=== PATIENT | male | born 1980 | race Caucasian/White ===

== ENCOUNTER 2016-11-19 07:22 | Emergency (ER) | payer SELFPAY ==
[~2016-11-19] VITALS: Ht 175.3 cm; Wt 127.0 kg
[2016-11-19] MEDS ORDERED: IBUPROFEN 600MG TABLET PO ONE (08:30)
[2016-11-19 08:44] VITALS: BP 125/86
== END 2016-11-19 08:45 | disposition home or self-care (01) ==
LOC: ER 07:23
DX: M25.512 Pain in left shoulder (principal); M54.2 Cervicalgia; M54.5 Low back pain; R07.9 Chest pain, unspecified; F17.200 Nicotine dependence, unspecified, uncomplicated; Z98.890 Other specified postprocedural states; V49.9XXA Car occupant (driver) (passenger) injured in unspecified traffic accident, initial encounter; Y93.89 Activity, other specified; Y92.89 Other specified places as the place of occurrence of the external cause; Y99.8 Other external cause status
CPT/HCPCS: 99282

== ENCOUNTER 2017-06-26 11:54 | Emergency (ER) | payer SELFPAY ==
[~2017-06-26] VITALS: Ht 177.8 cm; Wt 132.0 kg
[2017-06-26 12:21] VITALS: BP 164/100
== END 2017-06-26 17:07 | disposition left against medical advice (07) ==
LOC: ER 13:52
DX: N20.0 Calculus of kidney (principal); Z53.21 Procedure and treatment not carried out due to patient leaving prior to being seen by health care provider